=== PATIENT | female | born 1950 | race Caucasian/White ===

== ENCOUNTER 2017-11-27 11:22 | Emergency (ER) | payer MEDICARE, MEDICAID ==
[2017-11-27 11:22] VITALS: BMI 25.0
[2017-11-27 11:34] VITALS: BP 126/75; PULSE 76; RESP 16; TEMP 98.8; O2SAT 98
--- NOTE | 2017-11-27 12:12 | RAD ---
PROCEDURE: Right Thumb radiographs. HISTORY: injury COMPARISON: None. TECHNIQUE: AP radiograph of the right hand, as well as spot oblique and lateral images of thumb were obtained. FINDINGS: RIGHT THUMB: No acute fracture. JOINTS: Normal. SOFT TISSUES: Normal. OTHER FINDINGS: None. IMPRESSION: No demonstrated fracture or dislocation.
--- NOTE | 2017-11-27 12:31 | C.PDOC ---
History Of Present Illness 67yo female, comes to ER for evaluation of right thumb pain, swelling and redness, developed over the past 3 days. Patient states she was picking on a spot on her thumb with resulting pain. Patient was evaluated by her PMD Dr. Long and is currently taking Amoxicillin and bactroban cream. She denies any improvement, prompting her ER visit. DEnies fever, chills, wound discharges, denies weakness, sensory or vascular deficits to Right thumb. Ambulate to Ed for evaluation, not in any apparent distress. Time Seen by Provider: 11/27/17 11:29 Chief Complaint (Nursing): Upper Extremity Problem/Injury History Per: Patient History/Exam Limitations: no limitations Onset/Duration Of Symptoms: Days (3) Current Symptoms Are (Timing): Still Present Additional History Per: Patient Past Medical History Reviewed: Historical Data, Nursing Documentation, Vital Signs Vital Signs: Last Vital Signs Temp 98.8 F 11/27/17 11:32 Pulse 76 11/27/17 11:32 Resp 16 11/27/17 11:32 BP 126/75 11/27/17 11:32 Pulse Ox 98 11/27/17 13:57 - Medical History PMH: No Chronic Diseases Surgical History: No Surg Hx - [facility] Procedures ENDOSC POLYPECTOMY OF LG INTEST (11/12/12) ESOPHAGOGASTRODUODENOSCOPY [EGD] W/CLOSED BIOPSY (11/12/12) Family History: States: No Known Family Hx - Social History Hx Tobacco Use: No Hx Alcohol Use: No Hx Substance Use: No - Immunization History Hx Tetanus Toxoid Vaccination: No Hx Influenza Vaccination: No Hx Pneumococcal Vaccination: No Review Of Systems Except As Marked, All Systems Reviewed And Found Negative. Constitutional: Negative for: Fever, Chills Cardiovascular: Negative for: Chest Pain Respiratory: Negative for: Shortness of Breath Musculoskeletal: Positive for: Other (right thumb pain) Physical Exam - Physical Exam Appears: Well, Non-toxic, No Acute Distress Skin: Normal Color, Warm, Other (Right thumb: edema, erythema, tenderness to tip of finger extend under tip of nail, (-) flactualnce. No proximal streaking.) Extremity: Normal ROM (Right thumb), Capillary Refill (less than 2 sec to Right thumb), No Deformity Neurological/Psych: Oriented x3, Normal Speech, Normal Motor, Normal Sensation, Normal Reflexes ED Course And Treatment O2 Sat by Pulse Oximetry: 98 (RA) Pulse Ox Interpretation: Normal - Other Rad Right thumb X-Ray: Interpreted by Me, Viewed By Me Interpretation: (-) acute fx or dislocation Progress Note: On re-eval, pt is afebrile, hemodynamicaly stable. Non-toxic. Right hand: tenderness, edema, erythema to tip of Right thumb, no proximal streaking, no flactualnce, FAROm, no neurovascular deficits. Imaging review (- ) acute fx or dislocation. Pt has clinical findings c/w early felon to Right thumb. Pt advised, switched abx . ref. to f/u with PMD and hand specialist in2 -3 days for re-eavl. Disposition Counseled Patient/Family Regarding: Studies Performed, Diagnosis, Need For Followup, Rx Given - Disposition Referrals: Eliseo Long MD [Staff Provider] - Lissy Eason MD [Staff Provider] - Disposition: HOME/ ROUTINE Disposition Time: 12:10 Condition: STABLE Additional Instructions: Warm salty water with plain vinegar thumb soaking 2-3 times daily for 5 minutes Change antibiotic to new one Follow up with PMD in 2 days for re-evaluation. return if any worsening or new changes. 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 - Scribe Statement The provider has reviewed the documentation as recorded by the Scribe (Justine Murray) Provider Attestation: All medical record entries made by the Scribe were at my direction and personally dictated by me. I have reviewed the chart and agree that the record accurately reflects my personal performance of the history, physical exam, medical decision making, and the department course for this patient. I have also personally directed, reviewed, and agree with the discharge instructions and disposition.
== END 2017-11-27 12:48 | disposition home or self-care (01) ==
LOC: C.ER 11:22
DX: L03.011 Cellulitis of right finger (principal)

== ENCOUNTER 2018-09-16 08:47 | Outpatient (CLI) | payer MEDICARE, MEDICAID | END 2018-09-16 08:48 | disposition home or self-care (01) | LOC: C.DEXAIC 08:47 ==